=== PATIENT | male | born 1970 | race Two or more races ===

== ENCOUNTER 2022-07-01 19:45 | Inpatient (IN) | payer BC ==
[~2022-07-01] VITALS: Ht 188 cm; Wt 94.8 kg
--- NOTE | 2022-07-01 20:42 | NUR ---
Labs and IV SL 20G inserted. VSS at this time
[2022-07-01 20:51] LABS: HEMATOCRIT 47.2 % (36.7-47.1); MEAN CORPUSCULAR HEMOGLOBIN 29.1 uug (23.8-33.4); MEAN CORPUSCULAR VOLUME 87.5 fL (73.0-96.2); PLATELET COUNT (AUTO) 229 K/uL (152-348)
[2022-07-01 21:02] LABS: ALANINE AMINOTRANSFERASE 29 U/L (16-63); ALKALINE PHOSPHATASE 54 U/L (50-136); ASPARTATE AMINOTRANSFERASE 13 U/L (15-37); BILIRUBIN,DIRECT 0.1 mg/dL (0.0-0.2); BILIRUBIN,TOTAL 0.2 mg/dL (0.2-1.0); CARBON DIOXIDE 30 mmol/L (21-32); CHLORIDE 103 mmol/L (98-107); GLUCOSE 123 mg/dL (74-106); POTASSIUM 3.8 mmol/L (3.5-5.1); TOTAL PROTEIN, SERUM 7.1 g/dL (6.4-8.2); UREA NITROGEN, BLOOD 12 mg/dL (7-18)
[2022-07-01 21:12] LABS: *BILIRUBIN,URIN NEGATIVE (NEGATIVE); *CLARITY,URINE CLEAR (CLEAR); *COLOR,URINE YELLOW (YELLOW); *KETONES,URINE NEGATIVE (NEGATIVE); *UROBILINOGEN,URINE 0.2 E.U./dl (NORMAL); LEUKOCYTE ESTERASE ,URINE NEGATIVE (NEGATIVE); NITRITE, URINE NEGATIVE (NEGATIVE); PH,URINE 5.5 (5.0-8.0); UGLUCOSE NEGATIVE (NEGATIVE)
[2022-07-01 21:29] LABS: *BLOOD, URINE TRACE (NEGATIVE)
[2022-07-01 21:34] LABS: RBC,URINE 0-3 /HPF (0-3)
[2022-07-01 21:47] LABS: ETHANOL < 3 MG/DL (0-0)
[2022-07-01 21:51] LABS: *AMPHETAMINE, URINE NEGATIVE (NEGATIVE); *CANNABINOID, URINE NEGATIVE (NEGATIVE); *COCCAINE, URINE NEGATIVE (NEGATIVE); *OPIATE, URINE NEGATIVE (NEGATIVE); *PHENCYCLIDINE SCREEN,URINE NEGATIVE (NEGATIVE)
--- NOTE | 2022-07-02 01:55 | NUR ---
Called [facility] for panel call. 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
--- NOTE | 2022-07-02 03:17 | NUR ---
Endorsed to Marianela CRUZ. Will be admitted to [facility] 316
[2022-07-02 03:20] VITALS: BP 113/77
[2022-07-02] MEDS ORDERED: MAGNESIUM HYDROXIDE 30 ML LIQUID UDC PO PRN (03:45)
[2022-07-02] MEDS ORDERED: ZOLPIDEM 5 MG TABLET PO PRN (03:45)
[2022-07-02] MEDS ORDERED: REMEDY ESSENTIAL ZINC PASTE 113 GM TP PRN (03:45)
[2022-07-02] MEDS ORDERED: NITROGLYCERIN 0.4 MG/TAB BOTTLE SL PRN (03:45)
[2022-07-02] MEDS ORDERED: ONDANSETRON 4 MG/2 ML VIAL IV PRN (03:45)
[2022-07-02] MEDS ORDERED: ACETAMINOPHEN 325 MG TABLET PO PRN (03:45)
[2022-07-02] MEDS ORDERED: MORPHINE SULFATE 2 MG/1 ML DISP.SYRIN IV PRN ×2 (03:45→06:00)
--- NOTE | 2022-07-02 06:42 | NUR ---
Pt admitted from ED Assessment complete. Pt denies any chest pain or discomfort Slept for long period Care continue. Labs ordered Drawn.
[2022-07-02 08:14] VITALS: BP 102/55
[2022-07-02 08:16] VITALS: BP 112/76
[2022-07-02 08:18] VITALS: BP 114/76
[2022-07-02] MEDS ORDERED: ASPIRIN 81 MG TAB.CHEW PO SCH (09:00)
[2022-07-02] MEDS ORDERED: PANTOPRAZOLE SODIUM 40 MG VIAL IV SCH (09:00)
[2022-07-02 10:42] LABS: HEMATOCRIT 43.7 % (36.7-47.1); MEAN CORPUSCULAR HEMOGLOBIN 29.2 uug (23.8-33.4); MEAN CORPUSCULAR VOLUME 86.4 fL (73.0-96.2); PLATELET COUNT (AUTO) 202 K/uL (152-348)
[2022-07-02 11:08] VITALS: BP 104/61
[2022-07-02 11:43] LABS: CREATININE 0.9 mg/dL (0.6-1.3); PHOSPHOROUS 3.6 mg/dL (2.5-4.9); POTASSIUM 3.9 mmol/L (3.5-5.1)
[2022-07-02 12:13] LABS: MAGNESIUM 1.8 mg/dL (1.8-2.4); THYROID STIMULATING HORMONE 1.482 mIU/mL (0.358-3.740)
== END 2022-07-02 18:09 | disposition home or self-care (01) | DRG 392 ==
LOC: ER 19:51 → TELE3 07-02 02:52 → MEDSURG3 07-02 12:41 → TELE3 07-02 12:43
DX: K21.9 Gastro-esophageal reflux disease without esophagitis (principal); E78.5 Hyperlipidemia, unspecified; E11.9 Type 2 diabetes mellitus without complications; F17.210 Nicotine dependence, cigarettes, uncomplicated; Z87.11 Personal history of peptic ulcer disease; I10 Essential (primary) hypertension; F41.9 Anxiety disorder, unspecified; F43.9 Reaction to severe stress, unspecified; Z20.822 Contact with and (suspected) exposure to COVID-19
CPT/HCPCS: 36415; 71045; 83605; 83735; 84100; 84443; 84484; 85025; 87040; 87400; 93005; C9113; G0378; G0480